=== PATIENT | female | born 1935 | race Caucasian/White ===

== ENCOUNTER 2016-09-19 02:06 | Emergency (ER) | payer MEDICARE, OTHER ==
[~2016-09-19 02:06] MED LIST: ASPI-628 PO; ATOR20TA65 PO; FAMO20T PO; MULT-892 PO
[2016-09-19 02:18] VITALS: BP 145/84; PULSE 155; RESP 20; O2SAT 97
--- NOTE | 2016-09-19 02:18 | ED.REPORT ---
HPI-Chest Pain 40 and Over Date of Service Sep 19, 2016 ED Provider: Mikael Amato MD Pt is an 80 year old female with a history of A-fib and hyperlipidemia who presents to the ED complaining of a severe and constant headache onset around 00 :00 while the pt was sleeping. She c/o associated elevated blood pressure and heart rate. She denies any other symptoms. Pt reports that she took 2 aspirin without relief, and checked her blood pressure. Per pt, her blood pressure was systolic in the 140s and her heart rate was in the 100s. Nursing Notes Stated Complaint: TACHYCARDIA Chief Complaint: Dysrhythmia/Cardiac Nursing Notes Reviewed: Yes Allergies: Coded Allergies: codeine (Verified Allergy, Unknown, 06/10/15) cortisone (Verified Allergy, Unknown, retain fluids, 06/10/15) Scheduled Aspirin (Aspir 81) 81 Mg Tablet.dr 81 MG PO DAILY Atorvastatin Calcium (Atorvastatin Calcium) 20 Mg Tablet 20 MG PO DAILY Famotidine (Pepcid) 20 Mg Tablet 20 MG PO BID Multivitamin (Daily Value) 1 Each Tablet 1 EACH PO DAILY General Time Seen by MD: 02:17 Chief Complaint Other (Headache) Hx Obtained From: Patient, Spouse Arrived By: Walk-in Sudden in Onset?: Yes Onset Occurred: 1 - 4 hours ago Symptom Duration: Since onset Quality: Painful Severity: Current: Moderate Severity: Maximum: Moderate Recent Healthcare: No recent doctor visit, No recent hospitalization Similar Sx Previous: Yes Past Medical History Past Medical History Hyperlipidemia UTI 06/12/2014 arthralgias Arthritis Denies: Congestive heart failure, Diabetes mellitus, Hypertension Reports: Atrial fibrillation Past Surgical History pilondial cyst uterine fibroid surgery Reports: Appendectomy Family History Reports: Cancer Smoking History Former Smoker Social History Alcohol Use: "Social" Drug Use: Denies drug use Other Social History: Good social support Ambulatory Status Independent Review of Systems + elevated blood pressure and heart rate Constitutional: Denies: Fever Respiratory: Denies: Non-productive cough Neurologic: Reports: Headache Complete sys rev & neg: except as marked. Physical Exam Initial Vital Signs Vital Signs (First) Date Time Temp Pulse Resp B/P Pulse Ox O2 Delivery O2 Flow Rate FiO2 09/19/16 02:18 36.7 155 20 145/84 97 Room Air Initial VS: Reviewed, Vital signs abnormal Head / Eyes: Atraumatic, Normocephalic Neck: Supple, Full range of motion Extremities: Vascular intact, Neuro intact Skin: Warm, Dry, No cyanosis Neurologic: Alert, Oriented Psychiatric: Mood/affect normal, Behavior normal General/Constitutional: Awake, Alert, Cooperative Respiratory / Chest: Atraumatic, Breath sounds NL, Breath sounds = bilat, No respiratory distress CARDIOVASCULAR: Irregular irregular rapid rate Abdomen: Atraumatic, Soft, Non-tender Interpretation & Diagnostics Lab Results Interpretation Result Diagram: 09/19/16 0223 09/19/16 0223 Test 09/19/16 02:23 White Blood Count 8.2th/mm3 (3.8-10.1) Red Blood Count 4.74mil/mm3 (3.90-5.20) Hemoglobin 14.0g/dL (12.0-15.6) Hematocrit 42.8% (35.0-46.0) Mean Corpuscular Volume 90.3fL (81-100) Mean Corpuscular Hemoglobin 29.5pg (27.0-35.0) Mean Corpuscular Hemoglobin Concent 32.7% (32.0-37.0) Red Cell Distribution Width 13.7% (12.3-15.4) Platelet Count 220bil/L (150-400) Neutrophils (%) (Auto) 59.5% (40-74) Lymphocytes (%) (Auto) 30.5% (14-46) Monocytes (%) (Auto) 7.3% (4-12) Eosinophils (%) (Auto) 2.1% (0-5) Basophils (%) (Auto) 0.5% (0-3) Sodium Level 136mEq/L (134-144) Potassium Level 4.0mEq/L (3.5-5.2) Chloride Level 100mEq/L (97-108) Carbon Dioxide Level 22mmol/L (18-29) Blood Urea Nitrogen 21mg/dL (8-27) Creatinine 0.73mg/dL (0.57-1.00) Estimat Glomerular Filtration Rate 110mL/min (>59) Glucose Level 125mg/dL (60-99) Calcium Level 9.8mg/dL (8.5-10.1) Magnesium Level 1.8mg/dL (1.6-2.6) Total Bilirubin 0.3mg/dL (0.0-1.2) Aspartate Amino Transf (AST/SGOT) 19U/L (0-50) Alanine Aminotransferase (ALT/SGPT) 16U/L (0-32) Alkaline Phosphatase 106U/L (25-165) Troponin T 0.010ug/L (0.0-0.011) Total Protein 6.9g/dL (6.4-8.4) Albumin 4.2g/dL (3.4-5.0) Lab values outside NL range: no clinical significance. ECG Interpretation ECG Interpretation: Atrial fibrilllation with rapid V-rate of 162 Low voltage, extremity leads Repolarization abdnormality, prob rate related. Time: 02:16 Interpreted by: ED physician ECG Interpretation: Sinus rhythm with a rate of 88. Low voltage, precordial leads. Time: 02:56 Interpreted by: ED physician X-Ray Chest Interpretation Chest Xray Interpretation: Normal View: Portable, 1 view Interpretation / Wet Read by: Wet read ED physician Re-Eval/Medical Decision Med Decision/Clinical Course 80-year-old female with atrial fibrillation with rapid ventricular response. No specific contributing factor is known. She was given 2 doses of IV Cardizem 5 mg at 5 minute intervals and converted to a normal sinus rhythm. Original EKG showed a rate of 155 with some ischemic-appearing rate related such changes. Repeat EKG showed normalization of these findings at a rate of 75. She was observed for a short period with no return of A. fib. She was then discharged home in improved condition. Source of Hx: Old records Time of Eval: 03:01 Patient Status: Condition improved Re-Evaluation/Progress Note: Pt rechecked. Pt converted back to a normal sinus rhythm after 2 doses of 5mg IV Cardizem. All questions addressed. Time of Eval: 03:42 Patient Status: Condition improved Re-Evaluation/Progress Note: Pt rechecked. Informed pt of plan for discharge. Pt understands and agrees with plan for discharge. F/U instructions and RTER warnings given. All questions addressed. Counseled Regarding: Diagnosis, Lab results, Need for follow-up, When/why to return to ED Discharge & Departure Primary Impression: A-fib Atrial fibrillation type: unspecified Qualified Code: I48.91 - Unspecified atrial fibrillation Disposition: Home Discharge Condition All VS Reviewed: Yes Condition: Stable Patient Instructions: A-fib (Atrial Fibrillation) (ED) Additional Instructions: You were given Cardizem 5 mg IV 2 doses which converted your A. fib back to normal sinus rhythm. All the labs are normal. Return here if he has further problems. Referrals: Robb Garrett MD (PCP) Crit Care Except Billable Proc Time Spent: 30-74 minutes (45 min) Services Performed: Patient management by me, Time spent at bedside, Reviewing test results, Reviewing imaging, Discussing patient care, Documentation in record Critical Care Notes: A. fib with RVR, converted with IV Cardizem Kelsiibric Attestation Portions of this note were transcribed by Margie Boyd. I, Dr. Amato personally performed the history, physical exam and medical decision-making; I reviewed and confirmed the accuracy of the information in the transcribed note. Signed by: Mar Jane, 09/19/16 and 03:50. copies to: Robb Garrett MD, Howard L MD Sep 19, 2016 02:18 Margie Mac Sep 19, 2016 02:26
[2016-09-19] MEDS: Diltiazem 5 mg/mL 5 mL Inj IVPUSH PRN ×2 (02:26→02:36)
[2016-09-19 02:30] LABS: BASOPHILS % (AUTO) 0.5 % (0-3); EOSINOPHILS % (AUTO) 2.1 % (0-5); MONOCYTES % (AUTO) 7.3 % (4-12); Mean Corpuscular Hemoglobin 29.5 pg (27.0-35.0); Mean Corpuscular Volume 90.3 fL (81-100); NEUTROPHILS % (AUTO) 59.5 % (40-74); Platelet Count 220 bil/L (150-400)
[2016-09-19 02:35] VITALS: BP 101/64; PULSE 150; RESP 19; O2SAT 95
[2016-09-19 03:00] VITALS: BP 115/46; PULSE 84; RESP 18; O2SAT 95
[2016-09-19 03:02] LABS: TROPONIN T 0.01 ug/L (0.0-0.011)
[2016-09-19 03:14] LABS: Magnesium 1.8 mg/dL (1.6-2.6)
[2016-09-19 03:59] VITALS: BP 108/63; PULSE 76; RESP 23; O2SAT 96
--- NOTE | 2016-09-19 07:23 | DRSVH ---
PROCEDURE: X-RAY CHEST ONE VIEW, PORTABLE ([id number]) INDICATIONS: Afib with RVR TECHNIQUE: One view of the chest was acquired. COMPARISON: [facility], CR, XR CHEST 1VW (PORTABLE), 06/10/2015, 16:05. FINDINGS: Surgical changes and devices: None. Lungs and pleura: Trace left pleural effusion. Uncovertebral opacities or definite pleural effusions. Mediastinum: Mediastinal contours appear normal. Heart size is normal. Bones and chest wall: No suspicious bony lesions. Overlying soft tissues appear unremarkable. IMPRESSION: Trace left pleural effusion. Otherwise, negative chest. Dictated by: Heath Rodas M.D. on 09/19/2016 at 7:14 Approved by: Heath Rodas M.D. on 09/19/2016 at 7:16
== END 2016-09-19 04:00 | disposition home or self-care (01) ==
LOC: SED 02:06
DX: I48.91 Unspecified atrial fibrillation (principal); E78.5 Hyperlipidemia, unspecified; Z79.82 Long term (current) use of aspirin; Z87.440 Personal history of urinary (tract) infections; Z87.891 Personal history of nicotine dependence; Z88.5 Allergy status to narcotic agent; Z88.8 Allergy status to other drugs, medicaments and biological substances